=== PATIENT | female | born 1945 | race Caucasian/White ===

== ENCOUNTER 2017-05-06 19:47 | Emergency (ER) | payer OTHER ==
--- NOTE | 2017-05-06 20:42 | EDPHY ---
H & P Smoking Status: Never smoked Time Seen by Provider: 05/06/17 20:40 HPI/ROS: CHIEF COMPLAINT: Left hand swelling HISTORY OF PRESENT ILLNESS: This is a 71-year-old female presenting to the emergency department complaining of left hand swelling redness warm to touch after being stung by a wasp yesterday. Patient states swelling has worsened today with red streaks to left forearm, denies any fever chills shortness of breath. REVIEW OF SYSTEMS: Constitutional: No fever, no chills. Eyes: No discharge. No blurred vision ENT: No sore throat. Cardiovascular: No chest pain, no palpitations. Respiratory: No cough, no shortness of breath. Gastrointestinal: No abdominal pain, no vomiting. Genitourinary: No urinary difficulty Musculoskeletal: No back pain. Left hand swelling with red streaks Skin: No rashes. Neurological: No headache. (Alejandra Wallace) Physical Exam: General Appearance: Alert, no distress. Non ill or toxic appearing Eyes: Pupils equal and round no pallor or injection. ENT, Mouth: Mucous membranes moist. Respiratory: There are no retractions, lungs are clear to auscultation. Cardiovascular: Regular rate and rhythm. Gastrointestinal: Abdomen is soft and nontender, no masses, bowel sounds normal. Neurological: No focal deficits. Answering questions appropriately Skin: Warm and dry, no rashes. Musculoskeletal: Left dorsal aspect of hand redness swelling "dull ache" red streaks noted positive CMS intact Extremities: Full range of motion Psychiatric: Patient is oriented X 3, patient acting appropriately (Alejandra Wallace) Constitutional: Initial Vital Signs Temperature (C) 36.8 C 05/06/17 20:17 Heart Rate 91 05/06/17 20:17 Respiratory Rate 18 05/06/17 20:17 Blood Pressure 138/74 H 05/06/17 20:17 O2 Sat (%) 96 05/06/17 20:17 O2 Delivery Mode Room Air Allergies/Adverse Reactions: No Known Allergies Allergy (Unverified 05/06/17 20:16) Home Medications: Medication Instructions Recorded Clindamycin HCl [Clindamycin] 300 mg PO TID #30 cap 05/06/17 Medical Decision Making ED Course/Re-evaluation: Discussed ED plan of care: CBC, BMP, Benadryl, Solu-Medrol, clindamycin. 2300: The patient re-evaluation--> decrease in itching, nonlabored respiratory effort, no apparent distress. This discharge home---> discussed all discharge instructions with patient (Alejandra Wallace) I did not see this patient while she was in the emergency department. However her care was discussed with the nurse practitioner while the patient was in the department. I agree with treatment plan and management (Tomas Hanna) Differential Diagnosis: Other differential diagnosis considered but not limited to necrotizing fasciitis , laceration, and lymphangitis (Alejandra Wallace) - Data Points Laboratory Results: Laboratory Results 05/06/17 20:50 05/06/17 20:50 Medications Given: Discontinued Medications Diphenhydramine HCl (Benadryl Injection) 25 mg IVP EDNOW ONE Stop: 05/06/17 20:53 Last Admin: 05/06/17 21:12 Dose: 25 mg Clindamycin Phosphate/Dextrose (Cleocin 900 Mg (Premix)) 50 mls @ 100 mls/hr IV EDNOW ONE PRN Reason: Protocol Stop: 05/06/17 21:31 Last Admin: 05/06/17 22:32 Dose: 50 mls Methylprednisolone Sodium Succinate (Solu-Medrol) 125 mg IVP EDNOW ONE Stop: 05/06/17 20:53 Last Admin: 05/06/17 21:12 Dose: 125 mg Departure - Departure Disposition: Home, Routine, Self-Care Clinical Impression: Cellulitis Qualifiers: Site of cellulitis: extremity Site of cellulitis of extremity: upper extremity Laterality: left Qualified Code(s): L03.114 - Cellulitis of left upper limb Bee sting reaction Qualifiers: Encounter type: initial encounter Injury intent: accidental or unintentional Qualified Code(s): T63.441A - Toxic effect of venom of bees, accidental ( unintentional), initial encounter Condition: Good Instructions: Cellulitis (ED) Additional Instructions: 1. The take all antibiotics as prescribed 2. I have drawn a line around area of redness up the forearm, monitor for any worsening of redness fever chills this should occur return to the ER 3. You can also continue taking Benadryl 25-50 mg every 6-8 hours as needed Referrals: MELODY THOMAS [Other] - As per Instructions Prescriptions: Clindamycin HCl [Clindamycin] 300 mg PO TID #30 cap
[2017-05-06] MEDS ORDERED: methylPREDNISolone SOD SUCC 125 MG/2 ML VIAL IVP ONE (20:52)
[2017-05-06 21:02] LABS: % IMMATURE GRANULYOCYTES 0.2 % (0.0-1.1); ABSOLUTE IMMATURE GRANULOCYTES 0.02 10^3/uL (0.00-0.10); ADD DIFF? NO; ADD MORPH? NO; ADD SCAN? NO; ATYPICAL LYMPHOCYTE FLAG 10 (0-99); FRAGMENT RBC FLAG 0 (0-99); HEMATOCRIT 37.9 % (38.0-47.0); HEMOGLOBIN 12.8 g/dL (12.6-16.3); LEFT SHIFT FLG 0 (0-99); LIPEMIA HEMOLYSIS FLAG 90 (0-99); MEAN CELL HEMOGLOBIN 30.3 pg (27.9-34.1); MEAN CELL HEMOGLOBIN CONCENTR. 33.8 g/dL (32.4-36.7); MEAN CELL VOLUME 89.6 fL (81.5-99.8); MEAN PLATELET VOLUME 10.8 fL (8.7-11.7); PLATELET CLUMPS FLAG 0 (0-99); PLATELET COUNT 259 10^3/uL (150-400); RED BLOOD CELL COUNT 4.23 10^6/uL (4.18-5.33); RED CELL DISTRIBUTION WIDTH 13.7 % (11.5-15.2)
[2017-05-06] MEDS ORDERED: CLINDAMYCIN 900 MG/DEXTROSE 50 ML IV ONE (21:02)
[2017-05-06 21:12] LABS: ANION GAP 12 mEq/L (8-16); CALCIUM 9.6 mg/dL (8.5-10.4); CARBON DIOXIDE 25 mEq/l (22-31); CHLORIDE 107 mEq/L (97-110); CREATININE 0.7 mg/dL (0.6-1.0); GLOMERULAR FILTRATION RATE > 60; GLUCOSE 106 mg/dL (70-100); POTASSIUM 3.5 mEq/L (3.5-5.2); SODIUM 144 mEq/L (134-144)
[2017-05-06 21:29] VITALS: RESP 16
[2017-05-06 23:22] VITALS: BP 124/76; PULSE 84; TEMP 97.7; O2SAT 95
== END 2017-05-06 23:26 | disposition home or self-care (01) ==
DX: T63.441A Toxic effect of venom of bees, accidental (unintentional), initial encounter (principal); L03.114 Cellulitis of left upper limb
CPT/HCPCS: 96365; 96375; 99284; J1200